=== PATIENT | female | born 1960 | race Caucasian/White ===

== ENCOUNTER → 2016-11-16 | Outpatient (CLI) | payer OTHER ==
[~2016-11-16] MED LIST: ATEN-175 PO; CIPR-255 PO; GLUCTAB7 PO; LEVO75TA PO; METF1000 PO; MICARDIS PO; NAPR1TAB9 PO; SIMV20TA5 PO
--- NOTE | 2016-11-16 14:37 | MAMMOGRAPHY REPORT ---
BILATERAL DIGITAL SCREENING MAMMOGRAM WITH CAD: 11/16/2016 CLINICAL HISTORY: Routine screening. Patient has no complaints. TECHNIQUE: Bilateral CC, MLO and repeat MLO views with more anterior compression were obtained. Cur rent study was also evaluated with a Computer Aided Detection (CAD) system. COMPARISON: Comparison is made to exams dated: 11/12/2015 mammogram, 11/02/2013 mammogram, 10/26/2012 m ammogram, 10/21/2011 mammogram, 10/13/2010 mammogram, and 10/09/2009 mammogram - [facility]. BREAST COMPOSITION: The tissue of both breasts is almost entirely fatty. FINDINGS: There are a few stable benign calcifications in the breasts. No suspicious mass, architec tural distortion or cluster of microcalcifications is seen. IMPRESSION: ACR BI-RADS CATEGORY 1: NEGATIVE There is no mammographic evidence of malignancy. A 1 year screening mammogram is recommended. The p atient will receive written notification of the results. Approximately 10% of breast cancers are not detected with mammography. A negative mammographic repor t should not delay biopsy if a clinically suggestive mass is present. Daniela Bae M.D. ay/:11/16/2016 08:53:50 Dye Box Operator: Lavern THOMAS(Ludwin)(M), [facility] letter sent: Normal 1/2 BI-RADS Code: ACR BI-RADS Category 1: Negative
== END | disposition home or self-care (01) ==
LOC: C.MAMM 07:24
PROVIDERS: ATTEND Obstetrics & Gynecology
DX: Z12.31 Encounter for screening mammogram for malignant neoplasm of breast (principal)

== ENCOUNTER → 2017-02-18 | Outpatient (CLI) | payer OTHER ==
--- NOTE | 2017-02-18 14:48 | DIAGNOSTIC IMAGING REPORT ---
LEFT HAND 3 VIEWS CLINICAL HISTORY: Left hand pain. No reported history of trauma. FINDINGS: 3 views of left hand are obtained. No prior studies are available for comparison at the time of dictation. The skeletal structures are osteopenic. No fracture is seen. Mild arthritic change is noted at the first carpometacarpal joint. Mild osteoarthritic change is also seen involving the distal interphalangeal joints. No erosive change is identified. The overlying soft tissues are within normal limits. IMPRESSION: Mild arthritic change as above. No acute bony abnormality is seen. Electronically signed by: Maximus Baptiste M.D. 02/18/2017 2:47 PM Dictated Date/Time: 02/18/2017 2:46 PM
== END | disposition home or self-care (01) ==
LOC: C.RDSM 13:36
PROVIDERS: ATTEND Physician Assistant
DX: M79.642 Pain in left hand (principal)

== ENCOUNTER → 2017-05-18 | Outpatient (CLI) | payer OTHER ==
[2017-05-18 09:51] LABS: BLOOD UREA NITROGEN 22 mg/dl (7-18); BUN/CREATININE RATIO 19.9 (10-20); CALCIUM 9.6 mg/dl (8.5-10.1); CARBON DIOXIDE 30 mmol/L (21-32); CHLORIDE 104 mmol/L (98-107); GLUCOSE 135 mg/dl (70-99); POTASSIUM 4.2 mmol/L (3.5-5.1); SODIUM 140 mmol/L (136-145)
[2017-05-18 09:57] LABS: ESTIMATED AVERAGE GLUCOSE 123 mg/dl; HA1C FLAG Normal (Normal)
== END | disposition home or self-care (01) ==
LOC: C.LAB1850 07:28
PROVIDERS: ATTEND Internal Medicine Geriatric Medicine
DX: E11.9 Type 2 diabetes mellitus without complications (principal); I10 Essential (primary) hypertension; E03.9 Hypothyroidism, unspecified

== ENCOUNTER → 2017-06-29 | Outpatient (CLI) | payer OTHER | END | disposition home or self-care (01) | LOC: C.PAPS 15:19 | PROVIDERS: ATTEND Obstetrics & Gynecology | DX: Z12.4 Encounter for screening for malignant neoplasm of cervix (principal); Z85.42 Personal history of malignant neoplasm of other parts of uterus ==

== ENCOUNTER → 2017-07-01 | Outpatient (CLI) | payer OTHER | END | disposition home or self-care (01) | LOC: C.LAB1850 16:36 | PROVIDERS: ATTEND Internal Medicine Geriatric Medicine | DX: E03.9 Hypothyroidism, unspecified (principal) ==

== ENCOUNTER → 2017-11-18 | Outpatient (CLI) | payer OTHER ==
--- NOTE | 2017-11-18 14:34 | MAMMOGRAPHY REPORT ---
BILATERAL DIGITAL SCREENING MAMMOGRAM TOMOSYNTHESIS WITH CAD: 11/18/2017 CLINICAL HISTORY: Routine screening. Patient has no complaints. TECHNIQUE: Breast tomosynthesis in addition to standard 2D mammography was performed. Current study was also evaluated with a Computer Aided Detection (CAD) system. COMPARISON: Comparison is made to exams dated: 11/16/2016 mammogram, 11/12/2015 mammogram, 11/06/2014 m ammogram, 11/02/2013 mammogram, 10/26/2012 mammogram, and 10/21/2011 mammogram - [facility]. BREAST COMPOSITION: The tissue of both breasts is almost entirely fatty. FINDINGS: No suspicious masses, calcifications, or areas of architectural distortion are noted in ei ther breast. There has been no significant interval change compared to prior exams. IMPRESSION: ACR BI-RADS CATEGORY 1: NEGATIVE There is no mammographic evidence of malignancy. A 1 year screening mammogram is recommended. The pa tient will receive written notification of the results. Approximately 10% of breast cancers are not detected with mammography. A negative mammographic report should not delay biopsy if a clinically suggestive mass is present. Susy Bean M.D. /:11/18/2017 07:46:47 Dealer Analyst: Zohreh Winters, [facility] letter sent: Normal / BI-RADS Code: ACR BI-RADS Category 1: Negative
== END | disposition home or self-care (01) ==
LOC: C.MAMM 07:19
PROVIDERS: ATTEND Obstetrics & Gynecology
DX: Z12.31 Encounter for screening mammogram for malignant neoplasm of breast (principal)

== ENCOUNTER → 2017-11-30 | Outpatient (CLI) | payer OTHER ==
[2017-11-30 09:39] LABS: BLOOD UREA NITROGEN 17 mg/dl (7-18); CALCIUM 9.5 mg/dl (8.5-10.1); CARBON DIOXIDE 29 mmol/L (21-32); CREATININE 0.96 mg/dl (0.60-1.20); GLUCOSE 137 mg/dl (70-99); SODIUM 138 mmol/L (136-145)
== END | disposition home or self-care (01) ==
LOC: C.LAB1850 07:41
PROVIDERS: ATTEND Internal Medicine Geriatric Medicine
DX: E03.9 Hypothyroidism, unspecified (principal); E11.9 Type 2 diabetes mellitus without complications; I10 Essential (primary) hypertension

== ENCOUNTER → 2018-02-07 | Outpatient (CLI) | payer OTHER ==
--- NOTE | 2018-02-07 09:07 | DIAGNOSTIC IMAGING REPORT ---
RIGHT KNEE 4 VIEWS; LEFT KNEE 4 VIEWS CLINICAL HISTORY: Chronic bilateral knee pain. FINDINGS: An AP standing view of both knees, a tunnel view of both knees, a sunrise view of both knees, as well as crosstable lateral views of the right and left knee are compared to study dated 12/20/2015. The skeletal structures are osteopenic. No fracture is identified. Right knee: There is moderate to advanced degenerative narrowing in the medial and patellofemoral compartments. There are large marginal osteophytes as well as patellar enthesophytes. There is no evidence of osteochondral defect on the tunnel image. No joint effusion is identified. The overlying soft tissues are normal in appearance. Left knee: There is moderate to advanced degenerative narrowing in the medial and patellofemoral compartments. Only minimal narrowing is seen in the lateral compartment. There are patellar enthesophytes as well as large marginal osteophytes. No joint effusion is identified. No osteochondral defect is suggested on the tunnel image. The overlying soft tissues are within normal limits. IMPRESSION: 1. No acute bony abnormality is seen in either knee. 2. Osteopenia and arthritic change as above. This is similar to the 12/20/2015 examination. Electronically signed by: Maximus Baptiste M.D. 02/07/2018 9:06 AM Dictated Date/Time: 02/07/2018 9:03 AM
== END | disposition home or self-care (01) ==
LOC: C.RDSM 14:20
PROVIDERS: ATTEND Internal Medicine Geriatric Medicine
DX: M25.569 Pain in unspecified knee (principal); Q87.2 Congenital malformation syndromes predominantly involving limbs

== ENCOUNTER 2020-03-20 05:18 | Inpatient (IN) ==
--- NOTE | 2020-02-23 11:26 | Electrocardiogram Report ---
Test Reason : Blood Pressure : / mmHG Vent. Rate : 077 BPM Atrial Rate : 077 BPM P-R Int : 142 ms QRS Dur : 088 ms QT Int : 384 ms P-R-T Axes : 066 061 062 degrees QTc Int : 434 ms Normal sinus rhythm Normal ECG No previous ECGs available Confirmed by Reilly Lux ([id number]) on 02/23/2020 11:26:00 AM Referred By: Ross Mix Confirmed By:Reilly Lux
--- NOTE | 2020-02-23 17:52 | History and Physical Report ---
DATE OF ADMISSION: 03/20/2020 CHIEF COMPLAINT: Left knee pain. HISTORY OF PRESENT ILLNESS: This 59-year-old white female presents to the office with complaints of bilateral knee pain, left greater than right, that she has had for 5 years. Symptoms have become worse with time. She has tried activity modification, physical therapy, viscosupplementation injections and oral anti-inflammatories without lasting relief. She elects to proceed with left total knee arthroplasty in hopes of alleviating her discomfort. Preoperative imaging has been obtained. She notes night pain and difficulty with activities of daily living. Pain is worse with weightbearing and ambulation. She does note some loss of motion. PAST MEDICAL HISTORY: Significant for hypertension, elevated cholesterol, diabetes, hypothyroidism, osteoarthritis, history of endometrial cancer, and obesity. PAST SURGICAL HISTORY: Hysterectomy, wisdom teeth extraction, tonsillectomy. ALLERGIES: KNOWN ALLERGY TO TAVIST, WHICH CAUSES GI UPSET. CURRENT MEDICATIONS: Tylenol Extra Strength q.6 hours p.r.n., atenolol 100 mg p.o. daily, calcium with vitamin D daily, Glucosamine and chondroitin daily, vitamin B12, glimepiride unknown dose daily, HCTZ/telmisartan 80 mg/25 mg p.o. daily, Levothroid 88 mcg p.o. daily, metformin 1000 mg p.o. b.i.d., Aleve 220 mg p.o. q.8 hours, simvastatin 20 mg p.o. at bedtime. FAMILY HISTORY: Significant for ovarian cancer and pulmonary embolism. Her father from the PE. SOCIAL HISTORY: The patient is single. No tobacco use, occasional ETOH use. Employed. REVIEW OF SYSTEMS: A total of 10 systems are reviewed and are significant for only above stated conditions. PHYSICAL EXAMINATION: VITAL SIGNS: Temperature 36.8 oral, BP 148/80, pulse 86, O2 sat 98% on room air. Weight 145 kilograms. BMI 52. GENERAL: Well-developed, well-nourished middle-aged white female in no acute distress. Sitting in a chair. Alert and oriented. Obvious discomfort. Obese. SKIN: Warm and dry with good turgor. No rashes or lesions. No ecchymosis or erythema. HEENT: Normocephalic, atraumatic. Eyes: PERRLA, EOMI. Oropharynx and nares are deferred. HEART: RRR. No MGR. LUNGS: Clear to auscultation bilaterally. No crackles, rhonchi or wheezing. Good air movement. ABDOMEN: Bowel sounds present x4, soft, nontender. No organomegaly. No masses. MUSCULOSKELETAL: Left knee evaluation reveals no obvious deformity. No intraarticular effusion. No redness or warmth. She has full terminal extension. Flexion to around 90 degrees. This is limited by soft tissue. She has focal discomfort with palpation over the medial joint line. No lateral joint line discomfort with palpation today. There is some tenderness posteriorly. Stable collateral ligaments. No defect in the patellar tendon or quadriceps tendon. Strength is 5/5 for extension with fair quad tone. Ambulates with a slightly antalgic gait. NEUROLOGIC: Cranial nerves appear to be intact. Gross sensation is intact across all aspects of the lower extremities by soft touch. Peripheral pulses are 2+. DATA: Radiographic imaging previously obtained shows end-stage DJD of both knees, left greater than right. There is bone on bone in the medial compartments. Periarticular osteophytes and subchondral sclerosis are also present. New films were obtained today and there are no significant changes. IMPRESSION: Left knee end-stage degenerative joint disease. PLAN: Postoperative prescriptions for Percocet and Coumadin will be provided at discharge from the hospital. Anticipate discharge to home with home health services. Her aunt will be coming to stay with her for a few weeks postoperatively. Preoperative lab work, EKG, and chest x-ray have been ordered. She will see her PCP for medical clearance. The patient already has access to a walker. She will obtain COVID-19 testing just prior to surgery and then self-quarantine. This case is elective, but urgent given her level of discomfort and difficulty with ambulation.
--- NOTE | 2020-03-13 13:08 | Anesthesiology Consultation ---
Date of Service March 13, 2020 Assessment & Plan (1) Encounter for pre-operative examination: Chart Review Chart Review: Acceptable Risk for Surgery (pending 03/06/20 PCP clearance (surgeon ordered) and 03/18 Covid testing) and Patient NOT seen in Pre Admission Testing Per nursing assessment 03/13/2020, pt has had no recent travel. No known contact with PUIs or Covid positive people. No current Covid related symptoms. Patient getting COVID testing per surgeon order 03/18/2020. - Check BSG AM DOS - Seen by PCP 03/06/20 per surgeon clearance- note still pending- will need final PCP clearance History Surgery Operation Date: 03/20/20 08:50 Proposed Procedures p Left Total Knee Arthroplasty - Ross Mix MD Height/Weight Height: 5 ft 5 in Weight: 144.696 kg Allergies Allergy/AdvReac Type Severity Reaction Status Date / Time clemastine Allergy Unknown Vomiting Verified 03/13/20 11:44 phenylpropanolamine Allergy Unknown Vomiting Verified 03/13/20 11:44 ANDREW Inhibitors AdvReac Cough Verified 03/13/20 11:44 Beta-Blockers AdvReac Cough Verified 03/13/20 11:44 (Beta-Adrenergic Bloc Medications Home Medications Medication Instructions Recorded Confirmed Last Taken Caltrate 600 plus D 1 tab PO BID 05/03/19 03/13/20 05/17/19 Glucos Chond Cplx Advanced 1 tab PO BID 05/03/19 03/13/20 05/17/19 acetaminophen 1,000 - 1,500 mg PO DAILY PRN 05/03/19 03/13/20 05/12/19 naproxen sodium 440 mg PO Q8H PRN 05/03/19 03/13/20 05/17/19 cyanocobalamin (vitamin B-12) 1,000 mcg PO DAILY #90 tab 05/11/19 03/13/20 05/17/19 1,000 mcg tablet diclofenac sodium 1 % topical gel 4 gm TOPICAL .COMPLEX gm 05/11/19 03/13/20 02/08/19 simvastatin 20 mg tablet 20 mg PO PM #90 tab 09/19/19 03/13/20 Unknown atenolol 100 mg tablet 100 mg PO QAM #90 tab 10/16/19 03/13/20 Unknown metformin 1,000 mg tablet 1,000 mg PO BID #90 tab 10/16/19 03/13/20 Unknown telmisartan 80 1 tab PO QAM #90 tab 10/16/19 03/13/20 Unknown mg-hydrochlorothiazide 25 mg tablet levothyroxine 125 mcg tablet 125 mcg PO QAM #90 tab 11/16/19 03/13/20 Unknown glimepiride 4 mg PO QAM 03/13/20 03/13/20 Unknown Past Medical History Medical History Diabetes mellitus type 2, noninsulin dependent History of endometrial cancer Hyperlipidemia Hypertension Hypothyroidism Incisional hernia, without obstruction or gangrene Lumbar radiculopathy Osteoarthritis Past Family History Family History Mother Cancer Stroke Grandfather (Paternal) Stroke Grandmother Cancer Grandfather (Maternal) Cancer Unknown Dyslipidemia Other No family history of adverse response to anesthesia Past Surgical History Surgical History History of colonoscopy Hx of tonsillectomy Hx of total hysterectomy Hx of wisdom tooth extraction Social History Smoking Status: Never smoker Do You Dip or Chew Tobacco: No Hx Alcohol Use: Yes Alcohol type: wine alcohol intake frequency: a few times a month Hx Substance Use: No substance use type: does not use Testing Laboratory Results Laboratory Tests 02/29/20 02/29/20 02/29/20 08:14 08:14 08:15 WBC 8.13 Hgb 14.7 Hct 44.4 Plt Count 232 PT INR APTT Sodium 138 Potassium 4.1 Chloride 102 Carbon Dioxide 29 BUN 23 H Creatinine 0.96 Glucose 139 H Hemoglobin A1c 6.1 H TSH 1.500 02/29/20 08:15 WBC Hgb Hct Plt Count PT 11.4 INR 1.1 APTT 27.2 Sodium Potassium Chloride Carbon Dioxide BUN Creatinine Glucose Hemoglobin A1c TSH Electrocardiogram Date: 02/23/20 Findings: + NSR @ (77) Chest X-Ray Date: 02/23/20 Findings: + NAD
[2020-03-20] MEDS ORDERED: ROPIVACAINE 0.5% HCL/PF 150 MG, BUPIVACAINE 0.5% MPF 30 ML, EPINEPHrine 0.15 MG, Ketoro... INFIL SCH (06:00)
[2020-03-20] MEDS ORDERED: LR 500ML BOLUS, THEN 15ML/HR IV SCH (06:00)
[2020-03-20] MEDS ORDERED: CEFAZOLIN 3000MG 72.5 ML IV SCH (06:00)
[2020-03-20] MEDS ORDERED: LR 60ML/HR IV SCH (06:00)
[2020-03-20] MEDS ORDERED: TRANEXAMIC ACID 1,000 MG **IV Pre-op IV SCH (06:00)
[2020-03-20] MEDS ORDERED: LR 15ML/HR IV SCH (06:00)
--- NOTE | 2020-03-20 06:16 | History & Physical Bridge Note ---
Date of Service March 20, 2020 History & Physical Bridge Note I have examined the patient, reviewed the History & Physical and in the interval since the performance of the History & Physical I have noted the following changes of clinical significance:consent obtained/covid screen negative/site marked. no changes noted
[2020-03-20] MEDS ORDERED: MIDAZOLAM HCL 1 MG/ML 2ML VIAL ONE (06:27)
[2020-03-20] MEDS ORDERED: fentaNYL citrate 100 MCG/2 ML VIAL ONE (06:27)
[2020-03-20] MEDS ORDERED: BUPIVACAINE 0.25% 30 ML VIAL ONE (06:29)
[2020-03-20] MEDS ORDERED: BUPIVACAINE 0.5 % 5 MG/1 ML PF 10ML VIAL ONE (06:29)
[2020-03-20] MEDS ORDERED: ORTHO JOINT ANESTHETIC ONE (06:31)
[2020-03-20] MEDS ORDERED: ONDANSETRON INJ 2 MG/ML 2 ML VIAL IV PRN ×2 (06:56→09:46)
[2020-03-20] MEDS ORDERED: fentaNYL citrate 100 MCG/2 ML VIAL IV PRN (06:56)
[2020-03-20] MEDS ORDERED: ATROPINE SULFATE 0.1 MG/ML 10ML SYR IV PRN (06:56)
[2020-03-20] MEDS ORDERED: ePHEDrine sulfate 50 MG/ML AMP IV PRN (06:56)
[2020-03-20] MEDS ORDERED: PROPOFOL IV EMULSION 10 MG/ML 20 ML VIAL IV ONE ×3 (07:37→07:51)
[2020-03-20] MEDS ORDERED: ONDANSETRON INJ 2 MG/ML 2 ML VIAL ONE (07:37)
[2020-03-20] MEDS ORDERED: LIDOCAINE HCL 2% 2 ML VIAL/AMP(20MG/ML) INFIL ONE (07:37)
[2020-03-20] MEDS ORDERED: PHENYLEPHRINE 100MCG/ML 5ML SYR ONE (07:37)
--- NOTE | 2020-03-20 08:28 | Post Operative Brief Note ---
Immediate Post Op Note v1 Date of Surgery March 20, 2020 Pre & Post Diagnosis Operation Date: 03/20/20 07:00 Pre-Op Diagnosis: Left knee end-stage degenerative joint disease Post-Op Diagnosis: Left knee end-stage degenerative joint disease I identified the patient and participated in the time-out.: Yes Procedure Operation Date: 03/20/20 07:00 Actual Procedures p Left Total Knee Arthroplasty, Cemented(Left) - Ross Mix MD Surgeon Ross Mix MD Meat Molder psychiatricsaurav Estimated Blood Loss 50 Findings Consistent with Post-Op Diagnosis
--- NOTE | 2020-03-20 08:43 | Operative Report ---
Post Operative Report Pre & Post Diagnosis Operation Date: 03/20/20 07:00 Pre-Op Diagnosis: Left knee end-stage degenerative joint disease Post-Op Diagnosis: Left knee end-stage degenerative joint disease I identified the patient and participated in the time-out.: Yes Procedure Operation Date: 03/20/20 07:00 Actual Procedures p Left Total Knee Arthroplasty, Cemented(Left) - Ross Mix MD Surgeon LEONOR Mix MD Library Clerk kaitlynn Estimated Blood Loss 50 Findings Consistent with Post-Op Diagnosis Specimens see operative report Drains none Complications none Disposition Accompanied Patient To Recovery: Yes Disposition: Recovery Room Indications This 60-year-old white female presented to the office with complaints of intractable left knee pain. She had tried conservative care measures including activity modification, cortisone injections, Visco supplementation injections, and oral pain medication, without lasting improvement. She elected to proceed with surgical intervention after being educated about potential risks and outcomes. Preoperative imaging was obtained. Description of Procedure Patient was administered a spinal anesthetic and then taken to the operating room where she was given sedation. She was prepped and draped in the usual sterile fashion. Please see Dr. Mix's operative report for specifics of the procedure. I was present for the entire case from initial patient positioning through final wound closure. Assistance was provided in tissue retraction, hemostasis, trial implant placement, final implant placement, and final wound closure. Patient was taken to the recovery room in satisfactory condition. I attest to the content of the Intraoperative Record and any orders documented therein. Any exceptions are noted below.
--- NOTE | 2020-03-20 09:19 | XRay Report ---
LEFT KNEE 2 VIEWS History: Left total knee arthroplasty. Degenerative arthritis. Postop. FINDINGS: The patient is status post a left total knee arthroplasty. The hardware is intact. No fract ure or dislocation. Skin ekaterina are in place. IMPRESSION: Left total knee arthroplasty. No evidence for hardware complication. ACT 112: Negative or not required by law. Electronically signed by: Sb Pruitt M.D. 03/20/2020 9:18 AM
[2020-03-20] MEDS ORDERED: SODIUM CHLORIDE 0.9% 1000ML 1,000 ML IV SCH (09:46)
[2020-03-20] MEDS ORDERED: bisacodyL 10 MG SUPP PR PRN (09:46)
[2020-03-20] MEDS ORDERED: HYDROmorphone INJ 0.5 MG/0.5 ML SYR IV PRN (09:46)
[2020-03-20] MEDS ORDERED: ALUMINUM/MAGNESIUM SUSP 30 ML UDC PO PRN (09:46)
[2020-03-20] MEDS ORDERED: TELMISARTAN HYDROCHLOROTHIAZID PO SCH (09:46)
[2020-03-20] MEDS ORDERED: OXYCODONE HCL IR 5 MG TAB (IMMEDIATE RELEASE) PO PRN (09:46)
[2020-03-20] MEDS ORDERED: MAGNESIUM HYDROXIDE SUSP 30 ML UDC PO PRN (09:46)
[2020-03-20] MEDS ORDERED: DiphenhydrAMINE HCL 50 MG/ML VIAL IV PRN (09:46)
[2020-03-20] MEDS ORDERED: NALOXONE HCL 0.4 MG/1 ML VIAL/CARP IV PRN (09:46)
[2020-03-20] MEDS ORDERED: METOCLOPRAMIDE HCL INJ 5 MG/ML 2 ML VIAL IV PRN (09:46)
--- NOTE | 2020-03-20 09:52 | Operative Report (OR) ---
DATE OF OPERATION: 03/20/2020 SURGEON: Ross Mix MD. MENTAL HYGIENIST: Richard Aguero PA-C. No resident or fellow available. PREOPERATIVE DIAGNOSES: Severe osteoarthritis right knee with flexion varus deformity. POSTOPERATIVE DIAGNOSES: Severe osteoarthritis right knee with flexion varus deformity. OPERATION PERFORMED: Cemented left total knee replacement. SUMMARY OF IMPLANTS: Size 3 left femur, size 3 mobile bearing tray, oval dome 3 peg patella, tibial insert size 3 x 15, two bags of Palacos G cement. ESTIMATED BLOOD LOSS: 50 mL. CRYSTALLOID: Per Anesthesia. BONE PATHOLOGY: Pending. DVT PROPHYLAXIS: Per protocol. PERIOPERATIVE SITUATION: Medically cleared female with intractable knee pain. At this point in time flexion /varus significant deformity in both physical exam and x-ray, wants to proceed with surgical treatment. Consent obtained. Site verified. COVID negative. High BMI. DESCRIPTION OF PROCEDURE: The patient appropriately identified, site verified, consent verified. Antibiotics confirmed as being given. Left lower extremity was prepped and draped in usual routine fashion. A midline exposure was utilized. Parapatellar arthrotomy performed. Synovectomy completed. Patella everted. Osteophytes resected. Distal femur entered. Distal femur resected 14 mm, proximal tibia 4 mm, extension gap was excellent. Tibia sized to a 3. Femur sized between 4 and 3, was measured 4 and cut 3. No notching occurred. Flexion and extension gaps were excellent. Posterior capsule injected. Anterior, posterior condylar and chamfer cuts made. Box cut made. Size 3 trial fit well. Size 3 tibia broached and reamed fit well. A 15 spacer gave excellent stability in mid range and full extension. The patella was resected leaving 15 mm. It was sized to a 41 and appropriate seating holes made and the trial tracked well. The periarticular injection was then applied. All implants removed. The wound irrigated with Betadine and Pulsavac and then the permanent cemented in position. Tibia, femur and patella in that order. At 12 minutes, the tourniquet deflated. Minor bleeding points controlled with electrocautery. The wound was then irrigated, trial liner removed, permanent liner seated. Knee reduced and then closed at 30-40 degrees of flexion using #2 Vicryl, 2-0 Vicryl and stainless steel clips. Appropriate dressing including a Kevin Robbins cotton was placed. She will be placed in a Prevena tomorrow secondary to high BMI. She will be weightbearing to tolerance. Check x-rays in Recovery Room. Pathology pending on bone. I attest to the content of the Intraoperative Record and any orders documented therein. Any exceptions are noted below. LENCHO
[2020-03-20] MEDS ORDERED: DEXTROSE 50% 50 ML SYRINGE IV PRN (10:00)
[2020-03-20] MEDS ORDERED: CARBOHYDRATES FOR HYPOGLYCEMIA PO PRN (10:00)
[2020-03-20] MEDS ORDERED: GLUCOSE 40% GEL 15 GM TUBE PO PRN (10:00)
[2020-03-20] MEDS ORDERED: GLUCAGON FOR INJ 1 MG VIAL IM PRN (10:00)
[2020-03-20] MEDS ORDERED: GLUCOSE 10 TABS/TUBE PO PRN (10:00)
[2020-03-20] MEDS: DOCUSATE SODIUM 100 MG CAP PO SCH ×2 (11:55→21:13)
[2020-03-20] MEDS: MULTIVITAMIN TAB PO SCH (11:55)
[2020-03-20] MEDS: TELMISARTAN 40 MG TAB PO SCH (11:56)
[2020-03-20] MEDS: hydroCHLOROthiazide 25 MG TAB PO SCH (11:56)
[2020-03-20] MEDS: KETOROLAC 30 MG/ML VIAL IV SCH ×3 (11:58→23:40)
[2020-03-20] MEDS: INSULIN ASPART 100 UNITS/ML 3 ML PEN SC SCH ×3 (12:24→22:10)
[2020-03-20] MEDS: ACETAMINOPHEN 500 MG TAB PO SCH ×2 (13:20→21:13)
--- NOTE | 2020-03-20 13:24 | Progress Notes ---
DATE: 03/20/2020 SUBJECTIVE: Status post left total knee replacement. Postop check the patient is doing well, has no major issues. She is sitting up in bed. She denies chest pain, shortness of breath, fever, chills, nausea, vomiting or headache. OBJECTIVE: Vital signs are stable. She is afebrile. Wound dressing clean, dry and intact. Neurologic exam is limited by spinal wearing off. Has trace function. Postop x-rays look excellent. Calves nontender. ASSESSMENT: Doing well. Continue postop care pathway. We will proceed with activity to tolerance once legs wake up and prepare for discharge tomorrow.
--- NOTE | 2020-03-20 13:29 | Discharge Summary (DS) ---
CHIEF COMPLAINT: Left knee pain. HISTORY OF PRESENT ILLNESS: The patient is admitted for elective left total knee replacement. Hospital course to date has been uneventful. Postop x-rays look excellent. PAST MEDICAL HISTORY: Remarkable for hypertension, hypercholesterolemia, diabetes, hypothyroidism, osteoarthritis, endometrial cancer and obesity. PAST SURGICAL HISTORY: Remarkable for hysterectomy, wisdom teeth extraction, tonsillectomy. ALLERGIES: TAVIST GI UPSET. PREADMISSION MEDICATIONS: Tylenol, atenolol, vitamins, calcium supplements, glucosamine chondroitin, vitamin B, glimepiride, hydrochlorothiazide, telmisartan, Levothroid, metformin, Aleve, simvastatin. She will discontinue any anti-inflammatories. Add p.r.n. pain medication, see prescription, and Coumadin to keep INR 1.8-2.2. FAMILY HISTORY: Remarkable for ovarian cancer, pulmonary embolism. Father from a PE. SOCIAL HISTORY: Reveals that she is single. No tobacco or alcohol use. She is employed. REVIEW OF SYSTEMS: Noncontributory. Postop x-rays look excellent. ASSESSMENT: Doing well status post left total knee replacement. Place in a Prevena dressing tomorrow. Queeniequis for DVT/PE prophylaxis. Follow as an outpatient post-discharge. LENCHO
[2020-03-20] MEDS: CEFAZOLIN 2000MG 2,000 MG/15 ML SYR IV SCH ×2 (14:21→22:29)
[2020-03-20] MEDS ORDERED: TRANEXAMIC ACID / 0.7% NACL 1,000 MG/100 ML BAG IV SCH (15:30)
--- NOTE | 2020-03-20 16:35 | Anesthesiology Progress Note ---
Date of Service March 20, 2020 Anesthesia Post Procedure Vital Signs Vital Signs: Temp Pulse Pulse Pulse Resp BP Pulse Ox 03/20/20 15:29 36.6 C 65 16 156/77 H 95 03/20/20 12:45 36.6 C 78 20 136/75 97 03/20/20 11:45 37.1 C 65 20 127/69 97 03/20/20 10:45 36.4 C L 61 16 114/73 96 03/20/20 10:15 36.4 C L 67 18 114/70 95 03/20/20 09:45 36.4 C L 68 18 108/68 96 03/20/20 09:32 65 20 97/55 L 99 03/20/20 09:25 36.3 C L 67 15 98/60 L 98 03/20/20 09:15 67 18 102/59 L 100 03/20/20 09:07 67 17 110/59 L 99 03/20/20 08:55 68 15 104/58 L 98 03/20/20 08:44 36.8 C 71 22 107/52 L 98 03/20/20 05:50 36.4 C L 72 22 140/66 97 Pain Intensity Left Knee: Pain Intensity: 0 Transfer of Care Handoff Completed per policy Notes Mental Status: alert / awake / arousable and participated in evaluation Patient Amnestic to Procedure: Yes Nausea / Vomiting: adequately controlled Pain: adequately controlled Airway Patency, RR, SpO2: stable & adequate BP & HR: stable & adequate Hydration State: stable & adequate Neuraxial Anesthesia: was administered and sensory block is resolving Anesthetic Complications: no major complications apparent and Pt Satisfied with anesthetic care
[2020-03-20] MEDS: ASCORBIC ACID 500 MG TAB PO SCH (17:44)
[2020-03-20] MEDS: FERROUS GLUCONATE 324 MG TAB PO SCH (17:44)
[2020-03-20] MEDS ORDERED: SIMVASTATIN 20 MG TAB PO SCH (21:00)
[2020-03-20] MEDS ORDERED: SENNA 8.6 MG TAB PO SCH (21:00)
[2020-03-21 05:54] LABS: Hematocrit (blood only) 36.5 % (37-47); Mean Corpuscular Hemoglobin 30.8 pg (25-34); Mean Corpuscular Hgb Conc 32.9 g/dL (32-36); Mean Corpuscular Volume 93.6 fL (80-100); Platelet Count 229 K/uL (130-400); RDW Coefficient of Variation 14.1 % (11.5-14.5); RDW Standard Deviation 47.8 fL (36.4-46.3); White Blood Count 12.09 K/uL (4.8-10.8)
[2020-03-21 06:05] LABS: INR 1.1 (0.9-1.1); Prothrombin Time 11.3 Seconds (9.0-12.0)
[2020-03-21] MEDS: ACETAMINOPHEN 500 MG TAB PO SCH (06:08)
[2020-03-21] MEDS: KETOROLAC 30 MG/ML VIAL IV SCH (06:09)
[2020-03-21] MEDS ORDERED: LEVOTHYROXINE SODIUM 125 MCG TABLET PO SCH (06:30)
[2020-03-21 06:34] LABS: BUN Creatinine Ratio 21.2 (10-20); Calcium 8.4 mg/dl (8.5-10.1); Creatinine Clr Calc Pharmacy 72.7 ml/min; Est GFR (African American) 58.4; Est GFR (Non-African American) 50.4; Potassium 3.9 mmol/L (3.5-5.1)
--- NOTE | 2020-03-21 07:34 | Progress Notes ---
DATE: 03/21/2020 SUBJECTIVE: Postop day #1 status post left total knee replacement. The patient is sitting up in bed, comfortable. She denies any major pain. She notes that she just feels stiff and achy. She has been ambulatory. She denies any chest pain, shortness of breath, fever, chills, nausea, vomiting or headache. OBJECTIVE: Vital signs are stable. She is afebrile. Neurovascular check, femoral sciatic nerve is good. Wound dressing clean, dry and intact. ASSESSMENT AND PLAN: Doing well. Discharge to home today after PT, OT. Laboratory work is excellent. Hematocrit stable at 36.5. Will discharge on Eliquis based on family history of DVT, PE. She will start that this morning, 5 mg b.i.d. Follow up in a week for Prevena dressing change.
[2020-03-21] MEDS ORDERED: APIXABAN 5 MG TABLET PO SCH (08:00)
[2020-03-21] MEDS ORDERED: dexAMETHasone 8 MG in SYRINGE 0 ML IV SCH (08:00)
[2020-03-21] MEDS ORDERED: ATENOLOL 50 MG TABLET PO SCH (09:00)
--- NOTE | 2020-03-21 09:19 | Orthopedic Progress Note ---
Date of Service March 21, 2020 Assessment & Plan (1) Status post total left knee replacement: PT/OT this morning. Continue use of LETI hose. Prevena wound VAC was applied by me this morning. She will leave this in place until seen in the office on 03/28 at 1130. She has started her Eliquis this morning and will continue taking it twice daily for 6 weeks. Prescriptions for Percocet 5/325 mg and Eliquis 5 mg were sent to her pharmacy. Continue using the knee immobilizer until Wednesday morning. Call the office with any other concerns. Admission and Anticipated Discharge Date Admission Date: March 20, 2020 Subjective Patient is seen in her room this morning. She is sitting in a chair, alert and oriented. She denies any chest pain, nausea, vomiting, abdominal pain, or significant knee pain overnight. No shortness of breath. She feels ready for discharge today. No other complaints. Review of Systems Review of Systems: unchanged from yesterday Physical Exam Physical Exam: General: Well-developed, well-nourished, middle-aged female, in no acute distress. Sitting in a chair. Alert and oriented. Skin: Warm and dry with good turgor. No rashes or lesions. Expected pos toperative ecchymosis at the left knee. No erythema. Postsurgical dressing is in place. Upon removal, ekaterina are in place. Minimal drainage on her dressings. No active bleeding. Expected postoperative intra-articular effusion. The patient is not diaphoretic. Musculoskeletal: Patient has intact motor function to the left foot and ankle. She is unable to perform a straight leg raise. Supple motion of the left hip. Neurologic: Gross sensation is intact across the lower extremities by soft touch. Peripheral pulses are 2+. Results & Data ([facility]) Vital Signs (Past 12 Hours) Vital Signs Temp Pulse Resp BP Pulse Ox 03/21/20 07:11 36.6 C 73 16 138/65 94 03/21/20 03:19 36.5 C 75 16 129/77 94 03/20/20 23:46 37.0 C 74 17 120/68 93 Laboratory Results H&H are 12.0 and 36.5. INR is 1.1. PRP is otherwise unremarkable. Blood glucose is reasonable at 156.
[2020-03-21] MEDS: FERROUS GLUCONATE 324 MG TAB PO SCH (09:28)
[2020-03-21] MEDS: MULTIVITAMIN TAB PO SCH (09:29)
[2020-03-21] MEDS: ASCORBIC ACID 500 MG TAB PO SCH (09:29)
[2020-03-21] MEDS: DOCUSATE SODIUM 100 MG CAP PO SCH (09:29)
[2020-03-21] MEDS: TELMISARTAN 40 MG TAB PO SCH (09:35)
[2020-03-21] MEDS: hydroCHLOROthiazide 25 MG TAB PO SCH (09:36)
[2020-03-21] MEDS: INSULIN ASPART 100 UNITS/ML 3 ML PEN SC SCH (09:36)
== END 2020-03-21 12:45 | disposition home or self-care (01) | DRG 470 ==
LOC: ASU 05:18 → 3E 08:52

== ENCOUNTER 2021-06-25 06:15 | Observation (INO) ==
--- NOTE | 2021-05-28 15:57 | PAT Medication Instructions ---
Medication Instructions Date of Service May 28, 2021 Home Medications Medication Instructions Recorded atenolol 100 mg tablet 100 mg PO QAM #90 tab 10/10/20 telmisartan 80 1 tab PO QAM #90 tab 10/10/20 mg-hydrochlorothiazide 25 mg tablet (Micardis HCT) glimepiride 4 mg tablet 4 mg PO QAM #90 tab 02/07/21 glimepiride 4 mg tablet 4 mg PO QAM #90 tab 02/07/21 metformin 1,000 mg tablet 1,000 mg PO BID #180 tab 04/28/21 levothyroxine 125 mcg tablet 125 mcg PO QAM #90 tab 05/21/21 acetaminophen 500 mg tablet 1,000 - 1,500 mg PO DAILY PRN calcium carbonate 600 mg(1,500 mg)-vitamin D3 800 unit chewable tablet (Caltrate 600 plus D) 1 tab PO BID nilhgpesepc-rfaaazzsm-xqjq872-hyal 750 mg-100 mg-125 mg-1.65 mg tablet (Glucosamine Chondroit Complx Advan) 1 tab PO BID cyanocobalamin (vitamin B-12) 1,000 mcg tablet 1,000 mcg PO DAILY atenolol 100 mg tablet 100 mg PO QAM telmisartan 80 mg-hydrochlorothiazide 25 mg tablet (Micardis HCT) 1 tab PO QAM glimepiride 4 mg tablet 4 mg PO QAM glimepiride 4 mg tablet 4 mg PO QAM metformin 1,000 mg tablet 1,000 mg PO BID levothyroxine 125 mcg tablet 125 mcg PO QAM cyanocobalamin (vitamin B-12) 500 mcg tablet (Vitamin B-12) 500 mcg PO QPM simvastatin 10 mg tablet 10 mg PO QPM STOP taking 2 weeks before surgery (or as soon as possible if surgery is within 2 weeks) [id number]-[id number]-[id number]-hyal 750 mg-100 mg-125 mg-1.65 mg tablet (Glucosamine Chondroit Complx Advan) 1 tab PO BID DO NOT take the morning of surgery calcium carbonate 600 mg(1,500 mg)-vitamin D3 800 unit chewable tablet (Caltrate 600 plus D) 1 tab PO BID cyanocobalamin (vitamin B-12) 1,000 mcg tablet 1,000 mcg PO DAILY telmisartan 80 mg-hydrochlorothiazide 25 mg tablet (Micardis HCT) 1 tab PO QAM glimepiride 4 mg tablet 4 mg PO QAM glimepiride 4 mg tablet 4 mg PO QAM metformin 1,000 mg tablet 1,000 mg PO BID Take morning of surgery With a small sip of water, OTHERWISE NOTHING TO EAT OR DRINK AFTER MIDNIGHT: acetaminophen 500 mg tablet 1,000 - 1,500 mg PO DAILY PRN (okay to take up to 4 hours prior to surgery if needed) atenolol 100 mg tablet 100 mg PO QAM levothyroxine 125 mcg tablet 125 mcg PO QAM Take evening before surgery acetaminophen 500 mg tablet 1,000 - 1,500 mg PO DAILY PRN (if needed) calcium carbonate 600 mg(1,500 mg)-vitamin D3 800 unit chewable tablet (Caltrate 600 plus D) 1 tab PO BID metformin 1,000 mg tablet 1,000 mg PO BID cyanocobalamin (vitamin B-12) 500 mcg tablet (Vitamin B-12) 500 mcg PO QPM simvastatin 10 mg tablet 10 mg PO QPM Other Notes If you have any questions please call us at [phone] or [phone] or [phone] or [phone]
--- NOTE | 2021-06-02 08:59 | Anesthesiology Consultation ---
Date of Service June 02, 2021 Assessment & Plan (1) Encounter for pre-operative examination: - COVID screening: Per assessment on 06/02: Travel screen- Patient had day trip (for shopping) to [place], [place] planned for 06/14. Patient vaccinated. Preop COVID testing will be > 5 days prior to return from travel. No known COVID-19 positive contacts or current COVID-19 related symptoms. Surgeon arranging [facility]op [facility] Awaiting results. - Check BSG AM DOS - S/P Left TKA (03/20/20): SAB x1 attempt + PNB at [facility] Chart Review Chart Review: Acceptable Risk for Surgery (pending surgeon-ordered PCP clearance) and Patient seen in Pre Admission Testing Teaching & Discussion Pre-Anesthesia Teaching/Discussion Notes: Instructed NPO after midnight before surgery,except medications with 15 cc of water. Medication instructions provided according to the PAT guidelines. History Surgery Operation Date: 06/25/21 07:00 Proposed Procedures p Right Total Knee Arthroplasty - Ross Mix MD Height/Weight Height: 5 ft 6.5 in Weight: 144.6 kg Allergies Allergy/AdvReac Type Severity Reaction Status Date / Time clemastine Allergy Intermediate Vomiting Verified 06/02/21 12:53 phenylpropanolamine AdvReac Intermediate Vomiting Verified 06/02/21 12:53 ANDREW Inhibitors AdvReac Mild Cough Verified 06/02/21 12:53 Beta-Blockers AdvReac Mild Cough Verified 06/02/21 12:53 (Beta-Adrenergic Bloc Medications Home Medications Medication Instructions Recorded Confirmed Last Taken acetaminophen 500 mg tablet 1,000 - 1,500 mg PO DAILY PRN 05/03/19 06/02/21 03/19/20 19:00 calcium carbonate 600 mg(1,500 1 tab PO BID 05/03/19 06/02/21 03/19/20 19:00 mg)-vitamin D3 800 unit chewable tablet (Caltrate 600 plus D) syjfuvfmvde-[id number]-hyal 1 tab PO BID 05/03/19 06/02/21 03/19/20 19:00 750 mg-100 mg-125 mg-1.65 mg tablet (Glucosamine Chondroit Complx Advan) atenolol 100 mg tablet 100 mg PO QAM #90 tab 10/10/20 06/02/21 Unknown telmisartan 80 1 tab PO QAM #90 tab 10/10/20 06/02/21 Unknown mg-hydrochlorothiazide 25 mg tablet (Micardis HCT) glimepiride 4 mg tablet 4 mg PO QAM #90 tab 02/07/21 06/02/21 Unknown metformin 1,000 mg tablet 1,000 mg PO BID #180 tab 04/28/21 06/02/21 Unknown levothyroxine 125 mcg tablet 125 mcg PO QAM #90 tab 05/21/21 06/02/21 Unknown cyanocobalamin (vitamin B-12) 500 500 mcg PO QPM 05/28/21 06/02/21 Unknown mcg tablet (Vitamin B-12) simvastatin 10 mg tablet 10 mg PO QPM 05/28/21 06/02/21 Unknown Past Medical History Medical History (Updated 06/02/21 @ 13:14 by Pham Frederick MD) Diabetes mellitus type 2, noninsulin dependent History of endometrial cancer Dx 17 years ago, s/p hysterectomy Hyperlipidemia Hypertension Hypothyroidism Incisional hernia, without obstruction or gangrene Lumbar radiculopathy Morbid obesity Osteoarthritis Exercise / Class Metabolic Activity II 4-5 Yardwork/Stairs/Walk up hill (one FS (no CP, no SOB)) Past Family History Family History Mother Cancer Stroke Grandfather (Paternal) Stroke Grandmother Cancer Grandfather (Maternal) Cancer Unknown Dyslipidemia Other No family history of adverse response to anesthesia Past Surgical History Surgical History (Updated 06/02/21 @ 13:14 by Pham Frederick MD) History of colonoscopy History of left knee replacement Left TKA (03/20/20): SAB x1 attempt + PNB at [facility] Hx of tonsillectomy Hx of total hysterectomy Hx of wisdom tooth extraction Past Anesthesia History No Hx of Anesthesia Complications and No Family Hx of Anesthesia Complications History of PONV No Hx of PONV and No Hx of Motion Sickness Social History Smoking Status: Never smoker Do You Dip or Chew Tobacco: No Hx Alcohol Use: Yes Alcohol type: wine alcohol intake frequency: a few times a month Hx Substance Use: No substance use type: does not use Review of Systems Patient denies chest pain, shortness of breath, reflux, cough, wheezing, palpitations. Physical Exam Vital Signs VITALS BP 140/92 P 66 TEMP 98.2 SP02 96%RA RESP 16 PHYSICAL Full cervical extension range of motion. Full TMJ range of motion. TMD 3.5 finger breaths Mallampati Score 2 Dentition: intact, + several crowns Lungs: clear throughout to auscultation Cardiac: regular rate and rhythm, no murmurs noted Spine: normal Carotid arteries: negative bruit Extremities: non-pitting lower extremity edema Lab Results Anesthesia Preop Results Results Anesthesia Widget: WBC 7.56 K/uL (4.8-10.8) 06/02/21 Hgb 14.2 g/dL (12.0-16.0) 06/02/21 Hct 42.6 % (37-47) 06/02/21 Plt 250 K/uL (130-400) 06/02/21 Na 137 mmol/L (136-145) 06/02/21 K 4.7 mmol/L (3.5-5.1) 06/02/21 Cl 106 mmol/L (98-107) 06/02/21 CO2 30 mmol/L (21-32) 06/02/21 BUN 22 mg/dl (7-18) H 06/02/21 Creat 0.96 mg/dl (0.6-1.2) 06/02/21 Glucose Level 92 mg/dl (70-99) 06/02/21 PT 10.5 Seconds (9.0-12.0) 06/02/21 PTT 26.5 Seconds (21.0-31.0) 06/02/21 INR 1.0 (0.9-1.1) 06/02/21 TSH 1.870 uIu/ml (0.300-4.500) 06/02/21 HA1c 6.3 % (4.5-5.6) H 06/02/21 Urine Color Yellow 06/02/21 Urine Appearance Clear (Clear) 06/02/21 Urine pH 6.0 (4.5-7.5) 06/02/21 Urine Specific Ida 1.020 (1.000-1.030) 06/02/21 Urine Protein Negative (Negative) 06/02/21 Urine Glucose (UA) Negative (Negative) 06/02/21 Urine Ketones Negative (Negative) 06/02/21 Urine Blood Negative (Negative) 06/02/21 Urine Nitrite Negative (Negative) 06/02/21 Urine Bilirubin Negative (Negative) 06/02/21 Urine Urobilinogen Negative (Negative) 06/02/21 Urine Leukocyte Esterase Negative (Negative) 06/02/21 Blood Type O Negative 06/02/21 Antibody Screen NEGATIVE 06/02/21 Testing Laboratory Results 02/04/21 HGBA1C 6.3% Electrocardiogram Date: 06/03/21 Findings: + NSR @ (68) Chest X-Ray Date: 06/02/21 FINDINGS: The cardiac silhouette remains borderline enlarged. The lungs are clear. No pleural effusions. No pneumothorax. No evidence for pulmonary edema. IMPRESSION: No change compared to the prior study. Stable borderline cardiomegaly.
--- NOTE | 2021-06-16 08:13 | History & Physical Report ---
Date of Service June 16, 2021 Assessment & Plan (1) Right knee DJD: Plan: Postoperative prescriptions for Percocet and Coumadin will be provided at discharge from the hospital. Anticipate discharge to home with home health services. Her aunt will be coming to stay with her again for a few weeks. She did this with the last surgery. Preoperative lab work, EKG, and chest x-ray have been ordered. She will obtain medical clearance from her PCP. She already has a walker. She will obtain COVID-19 testing just prior to surgery. Order has been provided. She is aware of the COVID-19 risks associated with surgery. She is currently asymptomatic of any COVID-19 symptoms. PDMP was checked and there are no concerning findings. History of Present Illness Chief Complaint: Right knee pain Primary Care Provider: Pham Frederick MD This 61-year-old female presents for her preoperative history and physical. She is scheduled to undergo a right knee total knee arthroplasty on 06/25/2021. She has had a longstanding history of right knee pain. Symptoms have been ongoing for 6-7 years. Symptoms have become worse with time. She has tried activity modification, physical therapy, viscosupplementation injections, and oral anti-inflammatories without lasting relief. She elects to proceed with surgical intervention in hopes of alleviating her discomfort. Preoperative imaging has been obtained. She previously underwent left knee total knee arthroplasty on 03/20/2020 and has done well with that. She elects to proceed with the same on the right. She has night pain and difficulty with activities of daily living. Pain is worse with weightbearing and ambulation. Allergies Allergy/AdvReac Type Severity Reaction Status Date / Time clemastine Allergy Intermediate Vomiting Verified 06/02/21 12:53 phenylpropanolamine AdvReac Intermediate Vomiting Verified 06/02/21 12:53 ANDREW Inhibitors AdvReac Mild Cough Verified 06/02/21 12:53 Beta-Blockers AdvReac Mild Cough Verified 06/02/21 12:53 (Beta-Adrenergic Bloc Home Medications Medication Instructions Recorded Confirmed Type acetaminophen 500 mg tablet 1,000 - 1,500 mg PO DAILY PRN 05/03/19 06/02/21 His tory calcium carbonate 600 mg(1,500 1 tab PO BID 05/03/19 06/02/21 History mg)-vitamin D3 800 unit chewable tablet (Caltrate 600 plus D) tmogeliuxqy-rnzkdqkil-simn651-hyal 1 tab PO BID 05/03/19 06/02/21 History 750 mg-100 mg-125 mg-1.65 mg tablet (Glucosamine Chondroit Complx Advan) atenolol 100 mg tablet 100 mg PO QAM #90 tab 10/10/20 06/02/21 Rx telmisartan 80 1 tab PO QAM #90 tab 10/10/20 06/02/21 Rx mg-hydrochlorothiazide 25 mg tablet (Micardis HCT) glimepiride 4 mg tablet 4 mg PO QAM #90 tab 02/07/21 06/02/21 Rx metformin 1,000 mg tablet 1,000 mg PO BID #180 tab 04/28/21 06/02/21 Rx levothyroxine 125 mcg tablet 125 mcg PO QAM #90 tab 05/21/21 06/02/21 Rx cyanocobalamin (vitamin B-12) 500 500 mcg PO QPM 05/28/21 06/02/21 History mcg tablet (Vitamin B-12) simvastatin 10 mg tablet 10 mg PO QPM 05/28/21 06/02/21 History Past Med/Surg History Medical History Diabetes mellitus type 2, noninsulin dependent History of endometrial cancer Dx 17 years ago, s/p hysterectomy Hyperlipidemia Hypertension Hypothyroidism Incisional hernia, without obstruction or gangrene Lumbar radiculopathy Morbid obesity Osteoarthritis Surgical History History of colonoscopy History of left knee replacement Left TKA (03/20/20): SAB x1 attempt + PNB at [employer] Hx of tonsillectomy Hx of total hysterectomy Hx of wisdom tooth extraction Family History Mother Cancer Grandfather (Paternal) Stroke Grandmother Cancer Grandfather (Maternal) Cancer Unknown Dyslipidemia Father Pulmonary embolism Other No family history of adverse response to anesthesia Social History Smoking Status: Never smoker Second Hand Exposure: No; Hx Alcohol Use: Yes Alcohol type: wine Hx Substance Use: No Preferred Language: Malaysian Communication Ability: Effective Visual Impairment: No Limitations Hearing Ability: Normal Butcher Assistant Required: No Beliefs That Will Affect Care: None marital status: Single Current Living Situation: Alone current occupational status: employed current occupation: surgical scheduling at [employer] Feels Safe at Home: Yes Childhood Exposure to Second-Hand Smoke: No Dental Care, Regularly: Yes Physical Activity Frequency: Does not Exercise Seatbelt Use: always Sunscreen Use: No Assistive Devices: Glasses Review of Systems Review of Systems: All systems reviewed & are unremarkable except as noted in HPI & below A total of 10 systems were reviewed. Physical Exam Physical Exam: Vitals: Height 168.8 cm, weight 144.4 kilograms, BMI 50.7, temperature 35.5, BP 126/78, pulse 83, O2 sat 97% on room air. General: Well-developed, well-nourished, obese, middle-aged white female in no acute distress. Sitting in a chair. Alert and oriented. Skin: Warm and dry with good turgor. No rashes or lesions. No ecchymosis or erythema. HEENT: Normocephalic, atraumatic. Eyes: PERRLA, EOMI. Nares and oropharynx exams deferred due to COVID precautions. Heart: RRR, no MGR. Lungs: Clear to auscultation bilaterally. No crackles, rhonchi or wheezing. Good air movement. Abdomen: Obese. Bowel sounds present x4, soft, nontender. No organomegaly. No masses. Musculoskeletal: Right knee evaluation reveals no obvious asymmetry or deformity. No intraarticular effusion. No redness or warmth. There is full terminal extension. Flexion to around 90 degrees. This is limited by soft tissue. There is focal pain with palpation over the medial joint line. Also, mild lateral joint line discomfort with palpation today. Stable collateral ligaments. No defects in the patellar tendon or quadriceps tendon. Strength is 5/5 for resisted flexion and extension. Ambulates with a slightly antalgic gait. Neurologic: Gross sensation is intact across both lower extremities by soft touch. Peripheral pulses are 2+. Results & Data Results & Data ([facility]) Diagnostic Findings Radiographic imaging previously obtained shows end-stage DJD of the right knee. Periarticular osteophytes, subchondral sclerosis, and joint space narrowing are all present. Code Status & VTE Plan VTE Prophylaxis Plan VTE Prophylaxis will be ordered: Yes
[~2021-06-25 06:15] MED LIST changes: -ATEN-175 PO; -CIPR-255 PO; -GLUCTAB7 PO; -LEVO75TA PO; +LR 500ML BOLUS, THEN 15ML/HR IV SCH; +LR 60ML/HR IV SCH; -METF1000 PO; -MICARDIS PO; -NAPR1TAB9 PO; +ROPIVACAINE 0.5% HCL/PF 150 MG, BUPIVACAINE 0.75% MPF 20 ML, EPINEPHrine 0.15 MG, Ketor... INFIL SCH; -SIMV20TA5 PO; +TRANEXAMIC ACID 1,000 MG **IV Pre-op IV SCH
--- NOTE | 2021-06-25 06:19 | History & Physical Bridge Note ---
Date of Service June 25, 2021 History & Physical Bridge Note I have examined the patient, reviewed the History & Physical and in the interval since the performance of the History & Physical I have noted the following changes of clinical significance: consent obtained/site verified/covid screen negative.no changes noted
[2021-06-25] MEDS ORDERED: EPINEPHrine INJ 1 MG/ML AMP ONE (06:29)
[2021-06-25] MEDS ORDERED: BUPIVACAINE 0.5 % 5 MG/1 ML PF 10ML VIAL ONE (06:29)
[2021-06-25] MEDS ORDERED: ROPIVACAINE 0.5% 5 MG/ML 30 ML VIAL ONE (06:29)
[2021-06-25] MEDS ORDERED: ORTHO JOINT ANESTHETIC ONE (06:32)
[2021-06-25] MEDS ORDERED: fentaNYL citrate 100 MCG/2 ML VIAL ONE (06:35)
[2021-06-25] MEDS ORDERED: MIDAZOLAM HCL 1 MG/ML 2ML VIAL ONE ×2 (06:35→07:13)
[2021-06-25] MEDS ORDERED: LIDOCAINE 2% 2 ML VIAL/AMP(20MG/ML) INFIL ONE ×2 (06:35→08:17)
[2021-06-25] MEDS ORDERED: PROPOFOL IV EMULSION 10 MG/ML 20 ML VIAL IV ONE ×4 (06:35→08:28)
[2021-06-25] MEDS ORDERED: ATROPINE SULFATE 0.1 MG/ML 10ML SYR IV PRN (07:17)
[2021-06-25] MEDS ORDERED: PHENYLEPHRINE 100MCG/ML 5ML SYR IV PRN (07:17)
[2021-06-25] MEDS ORDERED: ePHEDrine sulfate 50 MG/ML AMP IV PRN (07:17)
[2021-06-25] MEDS ORDERED: fentaNYL citrate 100 MCG/2 ML VIAL IV PRN (07:17)
[2021-06-25] MEDS ORDERED: HYDROmorphone INJ 1 MG/ML SYRINGE IV PRN (07:17)
[2021-06-25] MEDS ORDERED: LABETALOL HCL IV 5 MG/ML 20ML IV PRN (07:17)
[2021-06-25] MEDS ORDERED: ONDANSETRON INJ 2 MG/ML 2 ML VIAL IV PRN ×2 (07:17→09:49)
[2021-06-25] MEDS ORDERED: KETAMINE 50 MG/5 ML SYRINGE ONE (07:54)
--- NOTE | 2021-06-25 08:55 | Post Operative Brief Note ---
Immediate Post Op Note v1 Date of Surgery June 25, 2021 Pre & Post Diagnosis Operation Date: 06/25/21 07:00 Pre-Op Diagnosis: Right Knee Degenerative Joint Disease Post-Op Diagnosis: Right Knee Degenerative Joint Disease I identified the patient and participated in the time-out.: Yes Procedure Operation Date: 06/25/21 07:00 Actual Procedures p Right Total Knee Arthroplasty(Right) - Ross Mix MD Surgeon Ross Mix MD Steam Plant Records Clerk Lane/Laci Estimated Blood Loss 75 Findings Consistent with Post-Op Diagnosis
--- NOTE | 2021-06-25 09:13 | Operative Report (OR) ---
DATE OF PROCEDURE: 06/25/2021. SURGEON: Ross Mix MD. GILL BOX TENDER: Deanna Sherman MD. SECOND ROLL SKINNER: Richard Aguero PA-C. PREOPERATIVE DIAGNOSIS: Osteoarthritis with varus deformity, right knee. POSTOPERATIVE DIAGNOSIS: Osteoarthritis with varus deformity, right knee. OPERATION PERFORMED: Right cemented total knee replacement. SUMMARY OF IMPLANTS: Size 3 femur rotating platform posterior cruciate stabilized size 3 mobile bear ing tray, size 3 x 20 mm posterior cruciate substituting insert, 41 patella. Two bags of Palacos G c ement. PATHOLOGY: Pending on bone. DVT prophylaxis per protocol. ESTIMATED BLOOD LOSS: 75 mL CRYSTALLOID: Per anesthesia. DESCRIPTION OF PROCEDURE: The patient was appropriately identified, site verified, consent verified. Antibiotics were confirmed as being given. Right lower extremity was prepped and draped in usual r outine fashion. The patient had a similar procedure done on the left knee. She understands the risk s and consequences and wants to proceed. She has endstage disease with severe arthritis on x-rays. A midline approach was made after the knee was prepped and draped in usual routine fashion. Tourniqu et was inflated to 300 mmHg after exsanguination of limb with a rubber Esmarch bandage for a total of 63 minutes. Due to a size appropriate incision was made. Full thickness flaps raised. Parapatellar arthrotomy p erformed. Synovectomy completed, osteophytes resected. Distal femur entered. Cruciates resected. Distal femur resected 12 mm, proximal tibia resected 4 mm. Appropriate soft tissue release was perfo rmed. Menisci resected. Cruciates resected. Extension gap was very, very hyperextendable so requir ed essentially a 17.5 to 20 mm insert. The femur was sized between 4 and 3 was measured 4 cut 3. There was no notching. The flexion gap again was required 17.5 to 20. Box cut was then made, femur fit well. The tibia was then broached and reamed to a size 3 and with 2 0 spacer the stability was excellent through full range, including mid range flexion. Anterior drawe r was not unstable and the flexion and extension were within full limits. Patella was then resected leaving 16 mm and a 41 trial seated after drilling 3 holes and it fit well and tracked well. Orthomix was then injected all about the knee. All of the trial implants were rem danish. The wound irrigated with Betadine Pulsavac, and then the permanent cemented into position tibi a, femur, and patella in that order. After 12 minutes, the tourniquet deflated. Minor bleeding cont rolled with electrocautery. After 14 minutes, the knee was flexed. No cement removal was really req uired. The wound was irrigated one final time with Betadine Pulsavac, the permanent liner seated. T he knee reduced and then the knee closed at 30 degrees of flexion with #2 Vicryl, 2-0 Vicryl and stai nless steel clips. Appropriate dressing applied. The patient was transferred to recovery room in sa tisfactory condition, having tolerated the procedure well. Job ID: [id number]
--- NOTE | 2021-06-25 09:13 | Operative Report ---
Post Operative Report Pre & Post Diagnosis Operation Date: 06/25/21 07:00 Pre-Op Diagnosis: Right Knee Degenerative Joint Disease Post-Op Diagnosis: Right Knee Degenerative Joint Disease I identified the patient and participated in the time-out.: Yes Procedure Operation Date: 06/25/21 07:00 Actual Procedures p Right Total Knee Arthroplasty(Right) - Ross Mix MD Surgeon Deanna Sherman MD Plumbing Installer Lane/Laci Estimated Blood Loss 75 Findings Consistent with Post-Op Diagnosis see Dr Mix note Specimens no specimens Description of Procedure see Dr. Mix note I attest to the content of the Intraoperative Record and any orders documented therein. Any exceptions are noted below. Supervising Physician Co-Signing Physician Hector Mix MD
--- NOTE | 2021-06-25 09:21 | Operative Report ---
Post Operative Report Pre & Post Diagnosis Operation Date: 06/25/21 07:00 Pre-Op Diagnosis: Right Knee Degenerative Joint Disease Post-Op Diagnosis: Right Knee Degenerative Joint Disease I identified the patient and participated in the time-out.: Yes Procedure Operation Date: 06/25/21 07:00 Actual Procedures p Right Total Knee Arthroplasty(Right) - Ross Mix MD Surgeon LEONOR Mix MD Mortgage Servicing Specialist Lane/Laci TILLEY Estimated Blood Loss 75 Findings Consistent with Post-Op Diagnosis see operative report Specimens see operative report Drains none Complications none Disposition Accompanied Patient To Recovery: Yes Indications This 61-year-old female presented to the office with complaints of persisting right knee pain. She had tried conservative care measures without improvement. She previously had a left total knee arthroplasty and has done well with it. She elects to proceed with the same on the right. Preoperative imaging was obtained. Description of Procedure Patient was administered a spinal anesthetic and then taken to the operating room where she was given sedation. She was prepped and draped in the usual sterile fashion. Please see Dr. Mix's operative report for specifics of the procedure. I was present for the entire case from initial patient positioning through final wound closure. Assistance was provided in tissue retraction, hemostasis, trial implant placement, final implant placement, and final wound closure. Patient was taken to the recovery room in satisfactory condition. I attest to the content of the Intraoperative Record and any orders documented therein. Any exceptions are noted below.
--- NOTE | 2021-06-25 09:35 | Anesthesiology Progress Note ---
Date of Service June 25, 2021 Anesthesia Post Procedure Vital Signs Vital Signs: Temp Pulse Resp BP Pulse Ox 06/25/21 09:25 36.3 C L 68 17 109/70 99 06/25/21 09:15 70 17 118/64 98 06/25/21 09:07 36.5 C 71 18 102/67 100 06/25/21 06:21 37.1 C 16 161/87 H 96 Transfer of Care Handoff Completed per policy Notes Mental Status: alert / awake / arousable Patient Amnestic to Procedure: Yes Nausea / Vomiting: adequately controlled Pain: adequately controlled Airway Patency, RR, SpO2: stable & adequate BP & HR: stable & adequate Hydration State: stable & adequate Neuraxial Anesthesia: was administered and sensory block is resolving Anesthetic Complications: no major complications apparent and Pt Satisfied with anesthetic care
[2021-06-25] MEDS ORDERED: NALOXONE HCL 0.4 MG/1 ML VIAL/CARP IV PRN (09:49)
[2021-06-25] MEDS ORDERED: oxyCODONE HCL IR 5 MG TAB (IMMEDIATE RELEASE) PO PRN (09:49)
[2021-06-25] MEDS ORDERED: ALUMINUM/MAGNESIUM SUSP 30 ML UDC PO PRN (09:49)
[2021-06-25] MEDS ORDERED: diphenhydrAMINE 50 MG/ML VIAL IV PRN (09:49)
[2021-06-25] MEDS ORDERED: bisacodyL 10 MG SUPP PR PRN (09:49)
[2021-06-25] MEDS ORDERED: SODIUM CHLORIDE 0.9% 1000ML 1,000 ML IV SCH (09:49)
[2021-06-25] MEDS ORDERED: METOCLOPRAMIDE HCL INJ 5 MG/ML 2 ML VIAL IV PRN (09:49)
[2021-06-25] MEDS ORDERED: HYDROmorphone INJ 0.5 MG/0.5 ML SYR IV PRN (09:49)
[2021-06-25] MEDS ORDERED: MAGNESIUM HYDROXIDE SUSP 30 ML UDC PO PRN (09:49)
--- NOTE | 2021-06-25 09:50 | XRay Report ---
XR knee RT 1 or 2V routine CLINICAL HISTORY: S/P R TKA COMPARISON: Right knee radiographs April 07, 2021. FINDINGS: Alignment of the total right knee arthroplasty is anatomic. No periprosthetic fracture or unexpected radiopaque body. There are skin ekaterina. IMPRESSION: Expected findings following total right knee arthroplasty. ACT 112: Negative or not required by law. Electronically signed by: Americo Mayberry M.D. 06/25/2021 9:49 AM
--- NOTE | 2021-06-25 10:07 | Progress Notes ---
DATE OF NOTE: 06/25/2021. SUBJECTIVE: Postop check status post right total knee replacement. The patient is resting comfortab ly. OBJECTIVE: VITAL SIGNS: Stable. She is afebrile. Neurovascular check is returning from spinal and is active toe flexion, extension, ankle dorsiflexion , plantarflexion. Wound dressing clean, dry and intact. IMAGES: Postop x-rays, AP and lateral, looks excellent. ASSESSMENT: Doing well status post right total knee replacement. Continue with care pathway. Mobil ize when her legs are awake. Kevin Robbins dressing overnight at minimum then a bulky dressing after that knee immobilizer for protection for the first 48-72 hours. Coumadin dose per nomogram. Job ID: [id number]
--- NOTE | 2021-06-25 10:17 | Discharge Summary (DS) ---
POTENTIAL DATE OF DISCHARGE: 06/26/2021. CHIEF COMPLAINT: Right knee pain. HISTORY OF PRESENT ILLNESS: The patient underwent elective right total knee replacement. [facility] has been uneventful to date. Postop x-rays look excellent. PREADMISSION MEDICATIONS: Include acetaminophen, calcium carbonate, glucosamine chondroitin sulfate, atenolol 100 mg tablets q.a.m., telmisartan 80 mg, hydrochlorothiazide 25 mg, glimepiride 4 mg, metf ormin 1000 mg b.i.d., levothyroxine 125 mcg q.a.m., simvastatin 10 mg p.o. q.p.m. Multivitamins. ALLERGIES: INCLUDE CLEMASTINE, PHENYLPROPANOLAMINE, ANDREW INHIBITORS, BETA BLOCKERS, WHICH PRODUCES A COUGH, BUT SHE IS ON A BETA-SHELL CHRONICALLY. PAST MEDICAL HISTORY AND PAST SURGICAL HISTORY: Remarkable for diabetes, hyperlipidemia, hypertensio n, hypothyroidism, incisional hernia, lumbar radiculopathy, morbid obesity, osteoarthritis, colonosco pies, left knee replacement, tonsillectomy, hysterectomy, wisdom teeth. FAMILY HISTORY: Remarkable for cancer in the grandparents. History of pulmonary embolism in the fam micheal. SOCIAL HISTORY: Reveals that she socially drinks. Does not smoke. Lives alone. She is employed. REVIEW OF SYSTEMS: Noncontributory. ASSESSMENT: Status post total knee replacement. Continue care pathway of right lower extremity. Di caron tomorrow if she does well overnight. Job ID: [id number]
[2021-06-25] MEDS: KETOROLAC TROMETHAMINE 15 MG/ML VIAL IV SCH ×3 (11:23→22:02)
[2021-06-25] MEDS ORDERED: VANCOMYCIN HCL 2,000 MG in SODIUM CHLORIDE 0.9% 500 ML IV ONE (12:30)
[2021-06-25] MEDS: INSULIN ASPART 100 UNITS/ML 3 ML PEN SC SCH ×3 (13:03→21:31)
[2021-06-25] MEDS ORDERED: ORTHO WARFARIN NOMOGRAM SCH ×2 (14:00)
[2021-06-25] MEDS: ACETAMINOPHEN 500 MG TAB PO SCH ×2 (14:34→20:45)
[2021-06-25] MEDS ORDERED: TRANEXAMIC ACID / 0.7% NACL 1,000 MG/100 ML BAG IV SCH (15:15)
[2021-06-25] MEDS: ceFAZolin 2000MG 2,000 MG/15 ML SYR IV SCH ×2 (15:52→22:02)
[2021-06-25] MEDS ORDERED: WARFARIN SOD 5 MG TAB PO ONE (16:00)
[2021-06-25] MEDS ORDERED: ASPIRIN 325 MG ECTAB PO ONE (17:15)
[2021-06-25] MEDS: ASCORBIC ACID 500 MG TAB PO SCH (17:32)
[2021-06-25] MEDS: FERROUS GLUCONATE 324 MG TAB PO SCH (17:33)
[2021-06-25] MEDS: DOCUSATE SODIUM 100 MG CAP PO SCH (20:44)
[2021-06-25] MEDS ORDERED: SIMVASTATIN 10 MG TAB PO SCH (21:00)
[2021-06-25] MEDS ORDERED: SENNA 8.6 MG TAB PO SCH (21:00)
[2021-06-26] MEDS: ACETAMINOPHEN 500 MG TAB PO SCH (05:00)
[2021-06-26] MEDS: KETOROLAC TROMETHAMINE 15 MG/ML VIAL IV SCH (05:00)
[2021-06-26 06:30] LABS: Hematocrit (blood only) 37.7 % (37-47); Hemoglobin 12.4 g/dL (12.0-16.0); Mean Corpuscular Hemoglobin 31.4 pg (25-34); Mean Corpuscular Hgb Conc 32.9 g/dL (32-36); Mean Corpuscular Volume 95.4 fL (80-100); Mean Platelet Volume 10.6 fL (7.4-10.4); Platelet Count 202 K/uL (130-400); RDW Coefficient of Variation 13.8 % (11.5-14.5); Red Blood Count 3.95 M/uL (4.2-5.4); White Blood Count 9.17 K/uL (4.8-10.8)
[2021-06-26] MEDS ORDERED: LEVOTHYROXINE SODIUM 125 MCG TABLET PO SCH (06:30)
[2021-06-26 06:53] LABS: INR 1.1 (0.9-1.1)
[2021-06-26 07:10] LABS: BUN Creatinine Ratio 19.9 (10-20); Calcium 8.7 mg/dl (8.5-10.1); Creatinine Clr Calc Pharmacy 69.7 ml/min; Est GFR (African American) 55.1 ml/min; Est GFR (Non-African American) 47.6 ml/min; Potassium 4.4 mmol/L (3.5-5.1)
[2021-06-26] MEDS: DOCUSATE SODIUM 100 MG CAP PO SCH (07:52)
[2021-06-26] MEDS: ASCORBIC ACID 500 MG TAB PO SCH (07:52)
[2021-06-26] MEDS: FERROUS GLUCONATE 324 MG TAB PO SCH (07:53)
[2021-06-26] MEDS: INSULIN ASPART 100 UNITS/ML 3 ML PEN SC SCH (08:25)
--- NOTE | 2021-06-26 08:39 | Progress Notes ---
SUBJECTIVE: Doing well. No major issues. Denies chest pain, shortness of breath, fever, chills, nausea, vomiting or headache. OBJECTIVE: She is voiding, eating and drinking. Neurovascular check femoral sciatic nerve is normal. Wound dressing clean, dry and intact. LABORATORY DATA: Labs are excellent. Hematocrit is 37. ASSESSMENT AND PLAN: Doing well. Discharged to home today. Discharged on Eliquis based on family history of DVT, PE. PA will place [facility] this morning . Job ID: [id number] [facility]
[2021-06-26] MEDS ORDERED: TELMISARTAN 40 MG TAB PO SCH (09:00)
[2021-06-26] MEDS ORDERED: hydroCHLOROthiazide 25 MG TAB PO SCH (09:00)
[2021-06-26] MEDS ORDERED: ATENOLOL 50 MG TABLET PO SCH (09:00)
[2021-06-26] MEDS ORDERED: MULTIVITAMIN TAB PO SCH (09:00)
--- NOTE | 2021-06-26 10:55 | Orthopedic Progress Note ---
Date of Service June 26, 2021 Assessment & Plan (1) S/P total knee replacement using cement: Plan: Patient was seen in her room. Postsurgical dressings were removed. Prevena wound VAC was placed by me. LETI hose was also placed on the right leg for compression. She will follow-up in the office 1 week from today for Prevena wound VAC removal. Continue with LETI hose daily. Written discharge instructions were provided. Continue using her knee immobilizer today and tomorrow. She may discontinue its use on Wednesday morning. Prescriptions for Percocet and Eliquis 5 mg were sent to her pharmacy. We will use Eliquis twice daily due to her family history of PE. She has no personal history. She did well with Eliquis after her previous surgery. Continue with ice and elevation frequently. Call the office with any other concerns. Admission and Anticipated Discharge Date Admission Date: June 25, 2021 Subjective Right knee status post total knee arthroplasty Review of Systems Review of Systems: Unchanged from exam yesterday Physical Exam Physical Exam: General: Well-developed, well-nourished, middle-aged female, in no acute distress. Sitting in her chair. Alert and oriented. Conversive. Skin: Warm dry with good turgor. No rashes. Postoperative dressing in place on the right leg. Upon removal, ekaterina are intact. Wound edges well approximated. No erythema or warmth. No drainage. Expected postoperative edema. There is scant dried blood on her dressings. Musculoskeletal: Patient has intact motor function to her ankle and toes. She is able to perform a straight leg raise with the right leg. Full terminal extension. Flexion to around 30 degrees before onset of discomfort. Neurologic: Gross sensation is intact across the right leg by soft touch. Results & Data ([facility]) Vital Signs (Past 12 Hours) Vital Signs Temp Pulse Resp BP Pulse Ox 06/26/21 07:00 37.2 C 79 20 128/80 94 06/26/21 02:33 37.2 C 81 16 130/77 94 Laboratory Results WBCs today are 9.17. Hemoglobin 12.4, hematocrit 37.7. INR is 1.1. Sodium 136, potassium 4.4, chloride 104. BUN 24, creatinine 1.2. Glucose 162. Max glucose during her stay has been 168.
== END 2021-06-26 13:27 | disposition home or self-care (01) ==
LOC: 3E 06:15 → ASU 06:15